=== PATIENT | female | born 1975 | race Two or more races ===

== ENCOUNTER → 2016-09-13 | Outpatient (CLI) | payer MEDICAID ==
[~2016-09-13] MED LIST: FLUO20CA8 PO; HYDR-3144 PO; SUMA50TA4 PO; TRAZ50TA18 PO
== END | disposition home or self-care (01) ==
LOC: STAR 12:49
PROVIDERS: ATTEND Specialist
DX: Z02.9 Encounter for administrative examinations, unspecified (principal)

== ENCOUNTER 2016-10-03 06:49 | Observation (INO) | payer MEDICAID ==
[2016-09-13 13:13] VITALS: BP 89/47
[~2016-10-03] VITALS: Ht 149.9 cm; Wt 54.3 kg
[~2016-10-03 06:49] MED LIST changes: +BUPIVACAINE/PF-EPI 0.25% 1:200K ONE
[2016-10-03] MEDS ORDERED: LACTATED RINGERS 1,000 ML IV SCH (08:01)
[2016-10-03] MEDS ORDERED: FLUORESCEIN SODIUM 500 MG/5 ML ONE (08:04)
[2016-10-03] MEDS ORDERED: MIDAZOLAM 1 MG/ML, 2ML ONE (08:19)
[2016-10-03] MEDS ORDERED: FENTANYL PF 250 MCG/5ML ONE (08:19)
[2016-10-03] MEDS ORDERED: PNEUMOCOCCAL 23 VACCINE IM-VACC ONE (08:30)
[2016-10-03] MEDS ORDERED: LIDOCAINE 1%, 2ML SQ PRN (08:30)
[2016-10-03] MEDS ORDERED: SCOPOLAMINE PATCH, 1.5MG PATCH.TD72 TD ONE (08:55)
[2016-10-03 09:01] LABS: HCG UR OBC PASS
[2016-10-03] MEDS ORDERED: DEXAMETHASONE 4 MG/ML, 1ML ONE (09:10)
[2016-10-03] MEDS ORDERED: PROPOFOL 10 MG/ML, 20ML ONE (09:10)
[2016-10-03] MEDS ORDERED: NEOSTIGMINE 1 MG/ML, 10ML ONE (09:10)
[2016-10-03] MEDS ORDERED: GLYCOPYRROLATE 0.2MG/1ML ONE (09:10)
[2016-10-03] MEDS ORDERED: PROPOFOL 10 MG/ML, 50ML ONE (09:10)
[2016-10-03] MEDS ORDERED: KETOROLAC 30 MG/1 ML ONE (09:10)
[2016-10-03] MEDS ORDERED: ROCURONIUM 10 MG/ML ONE (09:10)
[2016-10-03] MEDS ORDERED: ONDANSETRON 2MG/ML, 2ML ONE ×2 (09:10→11:22)
[2016-10-03] MEDS ORDERED: CEFAZOLIN 1,000 MG ONE (09:10)
[2016-10-03] MEDS ORDERED: BUPIVACAINE/PF-EPI 0.25% 1:200K ONE (10:16)
[2016-10-03] MEDS ORDERED: OXYcodone 5 MG/5 ML ORAL.SOL UDC PO PRN (10:30)
[2016-10-03] MEDS ORDERED: hydrALAzine 20 MG/ML, 1ML IV PRN (10:30)
[2016-10-03] MEDS ORDERED: EPHEDRINE 50 MG/ML, 1ML IVPush PRN (10:30)
[2016-10-03] MEDS ORDERED: HYDROmorphone 1 MG/ML, 1ML IV PRN (10:30)
[2016-10-03] MEDS ORDERED: ONDANSETRON 2MG/ML, 2ML IVPush PRN (10:30)
[2016-10-03] MEDS ORDERED: ACETAMINOPHEN 325 MG TABLET PO PRN (10:30)
[2016-10-03] MEDS ORDERED: HYDROmorphone 1 MG/ML, 1ML ONE (10:37)
[2016-10-03] MEDS ORDERED: FENTANYL PF 100 MCG/2ML ONE ×2 (11:22→11:58)
[2016-10-03] MEDS: FENTANYL PF 100 MCG/2ML IV PRN ×6 (11:25→12:05)
[2016-10-03] MEDS ORDERED: OXYcodone 5 MG/5 ML ORAL.SOL UDC ONE (11:45)
[2016-10-03] MEDS: HYDROmorphone 2 MG/ML, 1ML IV PRN (14:23)
[2016-10-03] MEDS: HYDROcodone/APAP 7.5-325MG/15ML UDC PO PRN ×2 (16:17→21:04)
[2016-10-03] MEDS: SIMETHICONE 80 MG CHEW TAB PO SCH ×2 (16:23→21:03)
[2016-10-03] MEDS: POTASSIUM CHLORIDE 20 MEQ in D5%-LACTATED RINGERS 1,000 ML IV SCH (16:23)
[2016-10-03] MEDS: KETOROLAC 30 MG/1 ML IV SCH (17:08)
[2016-10-03 18:27] VITALS: BP 95/61
[2016-10-03] MEDS ORDERED: TRAZODONE 50MG TABLET PO PRN (19:00)
[2016-10-03] MEDS ORDERED: SUMATRIPTAN 25 MG TABLET PO PRN (19:00)
[2016-10-03 23:29] VITALS: BP 99/63
[2016-10-04] MEDS: ONDANSETRON 2MG/ML, 2ML IV PRN ×2 (00:37→06:08)
[2016-10-04] MEDS: KETOROLAC 30 MG/1 ML IV SCH ×3 (00:37→11:29)
[2016-10-04] MEDS: POTASSIUM CHLORIDE 20 MEQ in D5%-LACTATED RINGERS 1,000 ML IV SCH ×2 (02:50→03:25)
[2016-10-04] MEDS: HYDROmorphone 2 MG/ML, 1ML IV PRN (02:56)
[2016-10-04 03:42] VITALS: BP 94/55
[2016-10-04] MEDS: HYDROcodone/APAP 7.5-325MG/15ML UDC PO PRN ×2 (07:18→11:29)
[2016-10-04 07:25] VITALS: BP 111/70
[2016-10-04] MEDS: SIMETHICONE 80 MG CHEW TAB PO SCH (08:56)
[2016-10-04] MEDS ORDERED: HYDR-3138 PO (12:05)
[2016-10-04] MEDS ORDERED: IBUP-1222 PO (12:06)
[2016-10-04] MEDS ORDERED: ESTR1TAB15 PO (12:08)
[2016-10-04] MEDS ORDERED: IBUPROFEN 600 MG TABLET PO SCH (16:00)
== END 2016-10-04 13:05 | disposition home or self-care (01) ==
LOC: OUT 06:49 → 4NOR 13:01 → OUT 21:32
PROVIDERS: ADMIT Specialist; ATTEND Specialist
DX: R10.2 Pelvic and perineal pain (principal); Z98.51 Tubal ligation status
CPT/HCPCS: 36415; 58552; 81025; 85014; 85018; 88307; 96374; 96375; 96376; G0378; J0690; J1100; J1170; J1885; J2250; J2405; J2704; J2710; J3010; J3480; J3490; J7120; J7121